=== PATIENT | male | born 1960 | race Caucasian/White ===

== ENCOUNTER → 2017-07-16 | Outpatient (CLI) | payer OTHER ==
--- NOTE | 2017-07-16 15:55 | RAD ---
Examination: 5 views of the mandible History: History of jaw pain, numbness for 2 weeks Comparison: None available Findings: The visualized bilateral mandibles grossly appears unremarkable with no definite evidence of fracture or lucency. Impression No acute osseous findings. If pain persists , a CT can be considered.
== END | disposition home or self-care (01) ==
LOC: DXRADRC 13:33
PROVIDERS: ATTEND Nurse Practitioner Family
DX: R68.84 Jaw pain (principal); R20.0 Anesthesia of skin
CPT/HCPCS: 70110